=== PATIENT | male | born 1960 | race African-American/Black ===

== ENCOUNTER 2018-03-16 12:11 | Inpatient (IN) | payer OTHER ==
[2018-03-16 13:13] VITALS: BMI 27.2
--- NOTE | 2018-03-16 16:06 | HP ---
CIWA Score - CIWA Score Nausea/Vomitin Muscle Tremors: 2 Anxiety: 3 Agitation: 0-Normal Activity Paroxysmal Sweats: 2 Orientation: 0-Oriented Tacttile Disturbances: 1-Very Mild Itch/Numbness Auditory Disturbances: 0-None Visual Disturbances: 0-None Headache: 2-Mild CIWA-Ar Total Score: 12 Admission [facility] Chief Complaint: PATIENT PRESENTS FOR ETOH WITHDRAWAL SYMPTOMS. Allergies/Adverse Reactions: Allergies Allergy/AdvReac Type Severity Reaction Status Date / Time No Known Allergies Allergy Verified 03/16/18 14:28 History of Present Illness: PATIENT PRESENTS FOR ETOH WITHDRAWAL SYMPTOMS. PATIENT STARTED DRINKING AT AGE 13. DRINKS UP TO 2 PINTS DAILY, AND 6 BEERS. ALSO SMOKES CRACK COCAINE AND STARTED SMOKING AT AGE 22. PATIENT SMOKES UP TO 150 DOLLARS DAILY. LAST DRINK AND COCAINE USE TODAY IN THE MORNING. DENIES SEIZURES FROM ETOH USE. HAS HISTORY OF DEPRESSION, ASTHMA, HEP C (TREATED). DENIES SI/HI AND SUICIDE ATTEMPTS. Exam Limitations: No Limitations - Ebola screening Have you traveled outside of the country in the last 21 days: No (N) Have you had contact with anyone from an Ebola affected area: No Have you been sick,other than usual withdrawal symptoms: No Do you have a fever: No - Review of Systems Constitutional: Night Sweats, Changes in sleep EENT: reports: No Symptoms Reported Respiratory: reports: No Symptoms reported Cardiac: reports: No Symptoms Reported GI: reports: Diarrhea, Nausea, Poor Fluid Intake, Abdominal cramping : reports: No Symptoms Reported Musculoskeletal: reports: Back Pain, Joint Pain, Muscle Pain Integumentary: reports: Sweating Neuro: reports: Headache, Tremors Endocrine: reports: No Symptoms Reported Hematology: reports: No Symptoms Reported Psychiatric: reports: Orientated x3, Anxious, Depressed Patient History - Patient Medical History Hx Anemia: No Hx Asthma: Yes Hx Chronic Obstructive Pulmonary Disease (COPD): No Hx Cancer: No Hx Cardiac Disorders: No Hx Congestive Heart Failure: No Hx Hypertension: No Hx Hypercholesterolemia: No Hx Pacemaker: No HX Cerebrovascular Accident: No Hx Seizures: No Hx Dementia: No Hx Diabetes: No Hx Gastrointestinal Disorders: Yes (GERD) Hx Liver Disease: Yes (TREATED HEP C) Hx Genitourinary Disorders: No Hx Sexually Transmitted Disorders: No Hx Renal Disease (ESRD): No Hx Thyroid Disease: No Hx Human Immunodeficiency Virus (HIV): No (LAST TEST ONE YEAR AGO AND NEGATIVE) Hx Hepatitis C: Yes (TREATED WITH HARVONI) Hx Depression: Yes Hx Suicide Attempt: No Hx Bipolar Disorder: No Hx Schizophrenia: No - Patient Surgical History Past Surgical History: Yes Hx Neurologic Surgery: No Hx Cataract Extraction: No Hx Cardiac Surgery: No Hx Lung Surgery: No Hx Breast Surgery: No Hx Breast Biopsy: No Hx Abdominal Surgery: No Hx Appendectomy: No Hx Cholecystectomy: No Hx Genitourinary Surgery: No Hx Orthopedic Surgery: No Other Surgical History: Bilateral inguinal hernia repairs in 2005 Anesthesia Reaction: No - PPD History Previous Implant?: Yes Documented Results: Negative w/o proof Implanted On Prior [facility] Admission?: No PPD to be Administered?: Yes - Smoking Cessation Smoking history: Current every day smoker Have you smoked in the past 12 months: Yes Aproximately how many cigarettes per day: 10 Hx Chewing Tobacco Use: No Initiated information on smoking cessation: Yes 'Breaking Loose' booklet given: 03/16/18 - Substance & Tx. History Hx Alcohol Use: Yes Hx Substance Use: Yes Substance Use Type: Alcohol, Cocaine Hx Substance Use Treatment: Yes (LAST DETOX ONE YEAR AGO [facility]) - Substances Abused Alcohol Route: Oral Frequency: Daily Amount used: 2 6pks beer/ 1-2 pint vodka Age of first use: 12 Date of Last Use: 03/16/18 Cocaine Route: Inhalation Frequency: Daily Amount used: $150 Age of first use: 19 Date of Last Use: 03/16/18 Family Disease History - Family Disease History Family Disease History: Diabetes: Mother, Heart Disease: Mother Admission Physical Exam [facility] - Vital Signs Vital Signs: Vital Signs - 24 hr 03/16/18 13:08 Temperature 98.1 F Pulse Rate 103 H Respiratory 18 Rate Blood Pressure 130/77 - Physical General Appearance: Yes: No Apparent Distress, Nourished, Appropriately Dressed , Tremorous, Sweating, Anxious HEENTM: Yes: EOMI, Hearing grossly Normal, Normal ENT Inspection, Normocephalic , Normal Voice, [place], Pharynx Normal Respiratory: Yes: Chest Non-Tender, Lungs Clear, Normal Breath Sounds, No Respiratory Distress, No Accessory Muscle Use Neck: Yes: No masses,lesions,Nodules, Supple, Trachea in good position Breast: Yes: Breast Exam Deferred Cardiology: Yes: Regular Rhythm, Regular Rate, S1, S2 Abdominal: Yes: Normal Bowel Sounds, Non Tender, Flat, Soft Genitourinary: Yes: Within Normal Limits Back: Yes: Normal Inspection, Muscle Spasm Musculoskeletal: Yes: Gait Steady, Back pain, Muscle Pain Extremities: Yes: Normal Capillary Refill, Normal Inspection, Normal Range of Motion, Non-Tender, Tremors Neurological: Yes: principal biostatistician II-XII NML intact, Fully Oriented, Alert, Motor Strength 5/5, Depressed Affect Integumentary: Yes: Within Normal Limits, Warm, Moist Lymphatic: Yes: Within Normal Limits - Diagnostic (1) Alcohol dependence with uncomplicated withdrawal Current Visit: Yes Status: Acute (2) Nicotine dependence Current Visit: Yes Status: Acute Qualifiers: Substance use status: uncomplicated (3) Cocaine dependence Current Visit: Yes Status: Acute Qualifiers: Substance use status: uncomplicated Qualified Code(s): F14.20 - Cocaine dependence, uncomplicated (4) Asthma Current Visit: Yes Status: Acute Qualifiers: Asthma complication type: unspecified (5) Depressed affect Current Visit: Yes Status: Acute Cleared for Admission [facility] - Detox or Rehab [facility] Level of Care: Medically Managed Detox Regimen/Protocol: Librium [facility] Breath Alcohol Content Breath Alcohol Content: 0.028 Urine Drug Screen - Results Drug Screen Negative: No Urine Drug Screen Results: SURI-Cocaine
[2018-03-16] MEDS ORDERED: MENTHOL/PHENOL 1 EACH UD MM PRN (16:11)
[2018-03-16] MEDS ORDERED: ACETAMINOPHEN 325 MG TABLET (FP) PO PRN (16:11)
[2018-03-16] MEDS ORDERED: P-EPHED 60MG/TRIPROLIDI 2.5MG TABLET PO PRN (16:11)
[2018-03-16] MEDS ORDERED: guaiFENesin/D-METHORPHAN HB 10 ML UNIT-DOSE CUPS PO PRN (16:11)
[2018-03-16] MEDS ORDERED: IBUPROFEN 400 MG TABLET (FP) PO PRN (16:11)
[2018-03-16] MEDS ORDERED: MAG HYDROX/AL HYDROX/SIMETH 30 ML UNIT-DOSE CUP PO PRN (16:11)
[2018-03-16] MEDS ORDERED: LOPERAMIDE HCL 2 MG CAPSULE PO PRN (16:11)
[2018-03-16] MEDS ORDERED: MAGNESIUM HYDROX 2400MG/30ML ORAL SUSPENSION 30 ML CUP PO PRN (16:11)
[2018-03-16] MEDS ORDERED: hydrOXYzine PAMOATE 50 MG CAPSULE (FP) PO PRN (16:11)
[2018-03-16] MEDS ORDERED: MAGNESIUM CITRATE 300 ML BOTTLE PO PRN (16:11)
[2018-03-16] MEDS ORDERED: chlordiazePOXIDE HCL 25 MG CAPSULE PO PRN (16:16)
[2018-03-16] MEDS ORDERED: chlordiazePOXIDE HCL 25 MG CAPSULE PO ONE (17:00)
[2018-03-16] MEDS ORDERED: MELATONIN 5 MG TABLETS PO PRN (22:00)
[2018-03-16] MEDS: chlordiazePOXIDE HCL 25 MG CAPSULE PO SCH (22:42)
[2018-03-16] MEDS: THIAMINE HCL 100 MG TABLET (FP) PO SCH (22:42)
[2018-03-16] MEDS: MONTELUKAST NA 10 MG TABLET PO SCH (22:42)
[2018-03-16] MEDS: ALBUTEROL SO4 18 GM HFA INHALER IH PRN (22:44)
[2018-03-17] MEDS: chlordiazePOXIDE HCL 25 MG CAPSULE PO SCH ×4 (05:56→22:39)
[2018-03-17 10:48] LABS: HEMATOCRIT 45.9 % (35.4-49); HEMOGLOBIN 15.3 GM/dL (11.7-16.9); MCH 33.2 pg (25.7-33.7); MCHC 33.3 g/dl (32.0-35.9); MEAN CELL VOLUME 99.7 fl (80-96); MEAN PLT VOLUME 8.1 fl (7.5-11.1); PLATELET COUNT 153 K/MM3 (134-434); WHITE BLOOD COUNT 7.2 K/mm3 (4.0-10.0)
[2018-03-17 11:05] LABS: CHLORIDE 106 mmol/L (98-107); POTASSIUM 4.3 mmol/L (3.5-5.1); SODIUM 142 mmol/L (136-145)
[2018-03-17 11:24] LABS: ALBUMIN 3.5 g/dl (3.4-5.0); ALK PHOS 77 U/L (45-117); ANION GAP 7 (8-16); BILIRUBIN,TOTAL 0.5 mg/dL (0.2-1.0); BLOOD UREA NITROGEN 12 mg/dL (7-18); CALCIUM 8.7 mg/dL (8.5-10.1); CO2 29 mmol/L (21-32); GLUCOSE,RANDOM 89 mg/dL (74-106); SGOT/AST 18 U/L (15-37); SGPT/ALT 39 U/L (12-78); TOT PROT 6.2 g/dl (6.4-8.2)
[2018-03-17] MEDS: PANTOPRAZOLE 40 MG TABLET (FP) PO SCH (12:03)
[2018-03-17] MEDS: PRENATAL VITAMINS W/ FOLIC ACID TABLET (FP) PO SCH (12:03)
[2018-03-17] MEDS: ALBUTEROL SO4 18 GM HFA INHALER IH PRN (12:06)
[2018-03-17] MEDS: NICOTINE POLACRILEX 4 MG GUM BC PRN ×3 (13:05→22:42)
--- NOTE | 2018-03-17 14:03 | PN ---
[facility] CIWA - CIWA Score Nausea/Vomitin-No Nausea/No Vomiting Muscle Tremors: 3 Anxiety: 4-Mod. Anxious/Guarded Agitation: 2 Paroxysmal Sweats: 3 Orientation: 0-Oriented Tacttile Disturbances: 2-Mild Itch/Numbness/Burn Auditory Disturbances: 0-None Visual Disturbances: 3-Moderate Sensitivity Headache: 0-None Present CIWA-Ar Total Score: 17 BHS Progress Note (SOAP) Subjective: Tremors, Sweating, Body Aches, Interrupted Sleep, Diarrhea. Objective: PATIENT A & O X 3, OBSERVED AMBULATING ON UNIT. NO ACUTE DISTRESS. 03/17/18 14:01 Vital Signs Temperature 96.1 F L 03/17/18 09:43 Pulse Rate 87 03/17/18 09:43 Respiratory Rate 20 03/17/18 09:43 Blood Pressure 130/70 03/17/18 09:43 O2 Sat by Pulse Oximetry (%) Laboratory Tests 03/17/18 03/17/18 03/17/18 07:55 07:55 07:55 WBC 7.2 RBC 4.60 Hgb 15.3 Hct 45.9 MCV 99.7 H MCH 33.2 MCHC 33.3 RDW 14.0 Plt Count 153 MPV 8.1 Sodium 142 Potassium 4.3 Chloride 106 Carbon Dioxide 29 Anion Gap 7 L BUN 12 Creatinine 1.0 Creat Clearance w eGFR > 60 Random Glucose 89 Calcium 8.7 Total Bilirubin 0.5 AST 18 ALT 39 Alkaline Phosphatase 77 Total Protein 6.2 L Albumin 3.5 RPR Titer Nonreactive LABS NOTED. UA RESULTS PENDING. 03/17/18 14:37 Assessment: 03/17/18 14:03 WITHDRAWAL SYMPTOMS. Plan: CONTINUE DETOX. PATIENT REPORTS HISTORY OF BEING PRESCRIBED OXYBUTYNIN FOR BLADDER DISORDER BY OUTSIDE MEDICAL PROVIDER. HOWEVER, ACCORDING TO PHARMACIST AT PATIENT'S PHARMACY ([facility], [place], [place] NO RECORD FOR PRIOR PRESCRIPTION OF OXYBUTYNIN EXISTS.
--- NOTE | 2018-03-17 14:50 | EKG ---
Test Reason : Blood Pressure : / mmHG Vent. Rate : 100 BPM Atrial Rate : 100 BPM P-R Int : 110 ms QRS Dur : 076 ms QT Int : 330 ms P-R-T Axes : 079 076 052 degrees QTc Int : 425 ms SINUS RHYTHM WITH SHORT AZ POSSIBLE LEFT ATRIAL ENLARGEMENT BORDERLINE ECG NO PREVIOUS ECGS AVAILABLE Confirmed by MD Bernardino, Armand ([id number]) on 03/17/2018 2:50:00 PM Referred By: Confirmed By:Armand Lebron MD
--- NOTE | 2018-03-17 15:10 | CONSULT ---
[facility] Psychiatric Consult - Data Date of interview: 03/17/18 Admission source: [facility] Identifying data: First admission to [facility] for this 57 y/o AA male seeking detox treatment on for alcohol and cocaine (crack) dependence.Patient is ,a father of two,domiciled,unemployed and supported on welfare. Substance Abuse History: Confirmed by the patient in this interview.Smoking history: Current every day smoker. Have you smoked in the past 12 months: Yes. Aproximately how many cigarettes per day: 10. Hx Chewing Tobacco Use: No. Initiated information on smoking cessation: Yes. 'Breaking Loose' booklet given : 03/16/18. - Substance & Tx. History. Hx Alcohol Use: Yes. Hx Substance Use : Yes. Substance Use Type: Alcohol, Cocaine. Hx Substance Use Treatment: Yes ( LAST DETOX ONE YEAR AGO [facility]). - Substances Abused. Alcohol. Route: Oral. Frequency: Daily. Amount used: 2 6pks beer/ 1-2 pint vodka. Age of first use: 12. Date of Last Use: 03/16/18. Cocaine. Route: Inhalation. Frequency: Daily. Amount used: $150. Age of first use: 19. Date of Last Use: 03/16/18 Medical History: GERD,bronchial asthma,hepatitis C (treated),benign prostatic hyperplasia (BPH) and a distant history of bilateral inguinal herniorraphy (2005 ). Psychiatric History: Diagnosed in the past with MDD.Used to be followed at the [facility] mental health clinic.Patient has voluntarily abstained from taking psychotropic medications for several months.Past treatment with bupropion.NO OPD care.Mr Walls denies history of suicide attempts. Physical/Sexual Abuse/Trauma History: No history reported. Additional Comment: Urine Drug Screen Results: SURI-Cocaine.Noted on admission. Mental Status Exam - Mental Status Exam Alert and Oriented to: Time, Place, Person Cognitive Function: Good Patient Appearance: Well Groomed Mood: Hopeful, Euthymic Affect: Appropriate, Normal Range Patient Behavior: Fatigued, Cooperative Speech Pattern: Clear Voice Loudness: Normal Thought Process: Intact, Goal Oriented Thought Disorder: Not Present Hallucinations: Denies Suicidal Ideation: Denies Homicidal Ideation: Denies Insight/Judgement: Fair Sleep: Poorly, Difficulty falling asleep Appetite: Good Muscle strength/Tone: Normal Gait/Station: Normal Psychiatric Findings - Problem List ([place] 1, 2,3) (1) Alcohol dependence with uncomplicated withdrawal Current Visit: Yes Status: Acute (2) Cocaine dependence Current Visit: Yes Status: Acute Qualifiers: Substance use status: uncomplicated Qualified Code(s): F14.20 - Cocaine dependence, uncomplicated (3) Nicotine dependence Current Visit: Yes Status: Acute Qualifiers: Nicotine product type: cigarettes Substance use status: uncomplicated Qualified Code(s): F17.210 - Nicotine dependence, cigarettes, uncomplicated (4) Insomnia Current Visit: Yes Status: Acute - Initial Treatment Plan Initial Treatment Plan: Psychoeducation.Sleep hygiene.Detoxification in progress.Ambien 5 mg po hs prn.Patient is made aware of the risk of parasomnias.Observation.
[2018-03-17] MEDS: TIOTROPIUM BROMIDE 18 MCG CAPSULES IH SCH (17:55)
[2018-03-17] MEDS: FLUTICASONE PROP 0.05% 16 GM NASAL SPRAY NS SCH (22:38)
[2018-03-17] MEDS: BUDESONIDE/FORMETEROL FUMARATE 160/4.5 mcg INHALER IH SCH (22:39)
[2018-03-17] MEDS: THIAMINE HCL 100 MG TABLET (FP) PO SCH (22:39)
[2018-03-17] MEDS: MONTELUKAST NA 10 MG TABLET PO SCH (22:39)
[2018-03-17] MEDS: ZOLPIDEM TARTRATE 5 MG TABLET PO PRN (22:42)
[2018-03-18] MEDS: chlordiazePOXIDE HCL 25 MG CAPSULE PO SCH ×3 (05:46→17:15)
[2018-03-18] MEDS: ALBUTEROL SO4 18 GM HFA INHALER IH PRN ×3 (05:47→21:02)
[2018-03-18] MEDS: TIOTROPIUM BROMIDE 18 MCG CAPSULES IH SCH (10:25)
[2018-03-18] MEDS: PANTOPRAZOLE 40 MG TABLET (FP) PO SCH (10:25)
[2018-03-18] MEDS: TAMSULOSIN HCL 0.4 MG CAP.ER.24H (FP) PO SCH (10:25)
[2018-03-18] MEDS: FLUTICASONE PROP 0.05% 16 GM NASAL SPRAY NS SCH ×2 (10:26→22:43)
[2018-03-18] MEDS: PRENATAL VITAMINS W/ FOLIC ACID TABLET (FP) PO SCH (10:26)
[2018-03-18] MEDS: BUDESONIDE/FORMETEROL FUMARATE 160/4.5 mcg INHALER IH SCH ×2 (10:28→22:48)
--- NOTE | 2018-03-18 15:22 | PN ---
S CIWA - CIWA Score Nausea/Vomitin (DIARRHEA) Muscle Tremors: 4-Moderate,w/Arms Extend Anxiety: 4-Mod. Anxious/Guarded Agitation: 3 Paroxysmal Sweats: 1-Minimal Palms Moist Orientation: 0-Oriented Tacttile Disturbances: 0-None Auditory Disturbances: 0-None Visual Disturbances: 0-None Headache: 0-None Present CIWA-Ar Total Score: 15 BHS Progress Note (SOAP) Subjective: ANXIETY,SWEATS,DIARRHEA,BACK ACHE. Objective: 03/18/18 15:22 Vital Signs 03/18/18 03/18/18 10:40 13:46 Temperature 96.1 F L 97.6 F Pulse Rate 81 90 Respiratory 20 20 Rate Blood Pressure 121/79 132/82 Laboratory Tests 03/17/18 03/17/18 03/17/18 07:55 07:55 07:55 WBC 7.2 RBC 4.60 Hgb 15.3 Hct 45.9 MCV 99.7 H MCH 33.2 MCHC 33.3 RDW 14.0 Plt Count 153 MPV 8.1 Sodium 142 Potassium 4.3 Chloride 106 Carbon Dioxide 29 Anion Gap 7 L BUN 12 Creatinine 1.0 Creat Clearance w eGFR > 60 Random Glucose 89 Calcium 8.7 Total Bilirubin 0.5 AST 18 ALT 39 Alkaline Phosphatase 77 Total Protein 6.2 L Albumin 3.5 RPR Titer Nonreactive OTHER LABS PENDING Assessment: 03/18/18 15:22 WITHDRAWAL SX Plan: CONTINUE DETOX IMODIUM PRN MOTRIN PRN
[2018-03-18] MEDS: NICOTINE POLACRILEX 4 MG GUM BC PRN (17:17)
[2018-03-18] MEDS ORDERED: ALBUTEROL SO4 0.083% IH SOL 2.5 MG/3 ML VIAL.NEB. NEB ONE (20:52)
--- NOTE | 2018-03-18 21:05 | PN ---
[facility] Progress Note Note: Patient complained of shortness of breath and wheezing. Saturation 91% at room air Vital Signs Temperature 97.4 F L 03/18/18 17:36 Pulse Rate 84 03/18/18 17:36 Respiratory Rate 18 03/18/18 17:36 Blood Pressure 134/75 03/18/18 17:36 O2 Sat by Pulse Oximetry (%) Action: Albulerol nebulizer treatment ordered
[2018-03-18] MEDS: THIAMINE HCL 100 MG TABLET (FP) PO SCH (22:43)
[2018-03-18] MEDS: MONTELUKAST NA 10 MG TABLET PO SCH (22:43)
[2018-03-18] MEDS: chlordiazePOXIDE 5 MG CAPSULE PO SCH (22:44)
[2018-03-18] MEDS: ZOLPIDEM TARTRATE 5 MG TABLET PO PRN (22:48)
[2018-03-19] MEDS: chlordiazePOXIDE 5 MG CAPSULE PO SCH ×3 (05:49→18:03)
[2018-03-19] MEDS: ALBUTEROL SO4 18 GM HFA INHALER IH PRN ×3 (05:49→22:35)
[2018-03-19] MEDS: PANTOPRAZOLE 40 MG TABLET (FP) PO SCH (10:28)
[2018-03-19] MEDS: BUDESONIDE/FORMETEROL FUMARATE 160/4.5 mcg INHALER IH SCH ×2 (10:28→22:32)
[2018-03-19] MEDS: PRENATAL VITAMINS W/ FOLIC ACID TABLET (FP) PO SCH (10:28)
[2018-03-19] MEDS: TAMSULOSIN HCL 0.4 MG CAP.ER.24H (FP) PO SCH (10:28)
[2018-03-19] MEDS: FLUTICASONE PROP 0.05% 16 GM NASAL SPRAY NS SCH ×2 (10:28→22:30)
[2018-03-19] MEDS: TIOTROPIUM BROMIDE 18 MCG CAPSULES IH SCH (10:28)
[2018-03-19] MEDS ORDERED: ALBUTEROL SO4 0.083% IH SOL 2.5 MG/3 ML VIAL.NEB. NEB PRN (12:35)
--- NOTE | 2018-03-19 12:39 | PN ---
[facility] Progress Note (SOAP) Subjective: Cough Sweats Shakes Objective: 03/19/18 12:37 A & O x 3 Some rhonchi auscultaed No use of accessory muscles Vital Signs Temperature 97.8 F 03/19/18 09:41 Pulse Rate 97 H 03/19/18 09:41 Respiratory Rate 18 03/19/18 09:41 Blood Pressure 136/81 03/19/18 09:41 O2 Sat by Pulse Oximetry (%) Assessment: 03/19/18 12:38 Withdrawal sx Cough - non productive Plan: continue detox Albuerol prn
[2018-03-19 15:08] LABS: URINE APPEARANCE CLEAR; URINE BILIRUBIN NEGATIVE (<2.0 mg/dL); URINE BLOOD NEGATIVE (NEGATIVE); URINE COLOR STRAW; URINE GLUCOSE (UA) NEGATIVE (NEGATIVE); URINE KETONE NEGATIVE (NEGATIVE); URINE LEUK ESTERASE NEGATIVE (NEGATIVE); URINE NITRITE NEGATIVE (NEGATIVE); URINE PROTEIN NEGATIVE (NEGATIVE); URINE UROBILINOGEN NEGATIVE mg/dL (0.2-1.0)
[2018-03-19] MEDS: ZOLPIDEM TARTRATE 5 MG TABLET PO PRN (22:32)
[2018-03-19] MEDS: MONTELUKAST NA 10 MG TABLET PO SCH (22:32)
[2018-03-19] MEDS: chlordiazePOXIDE HCL 10 MG CAPSULE PO SCH (22:32)
[2018-03-19] MEDS: THIAMINE HCL 100 MG TABLET (FP) PO SCH (22:35)
[2018-03-20] MEDS: chlordiazePOXIDE HCL 10 MG CAPSULE PO SCH ×2 (06:12→10:59)
[2018-03-20] MEDS: ALBUTEROL SO4 18 GM HFA INHALER IH PRN (06:13)
[2018-03-20 09:24] VITALS: BP 132/84; PULSE 91; TEMP 98.3
[2018-03-20] MEDS: TAMSULOSIN HCL 0.4 MG CAP.ER.24H (FP) PO SCH (09:43)
[2018-03-20] MEDS: FLUTICASONE PROP 0.05% 16 GM NASAL SPRAY NS SCH (09:43)
[2018-03-20] MEDS: TIOTROPIUM BROMIDE 18 MCG CAPSULES IH SCH (09:43)
[2018-03-20] MEDS: PRENATAL VITAMINS W/ FOLIC ACID TABLET (FP) PO SCH (09:43)
[2018-03-20] MEDS: PANTOPRAZOLE 40 MG TABLET (FP) PO SCH (09:45)
[2018-03-20] MEDS: BUDESONIDE/FORMETEROL FUMARATE 160/4.5 mcg INHALER IH SCH (10:58)
--- NOTE | 2018-03-20 12:22 | PN ---
[facility] Progress Note (SOAP) Subjective: Patient denies current Detox symptoms and reports that he feels well overall. Objective: PATIENT A & O X 3, OBSERVED AMBULATING ON UNIT. NO ACUTE DISTRESS. 03/20/18 12:25 Vital Signs Temperature 98.3 F 03/20/18 09:23 Pulse Rate 91 H 03/20/18 09:23 Respiratory Rate 18 03/20/18 09:23 Blood Pressure 132/84 03/20/18 09:23 O2 Sat by Pulse Oximetry (%) Laboratory Tests 03/17/18 03/17/18 03/17/18 07:55 07:55 07:55 WBC 7.2 RBC 4.60 Hgb 15.3 Hct 45.9 MCV 99.7 H MCH 33.2 MCHC 33.3 RDW 14.0 Plt Count 153 MPV 8.1 Sodium 142 Potassium 4.3 Chloride 106 Carbon Dioxide 29 Anion Gap 7 L BUN 12 Creatinine 1.0 Creat Clearance w eGFR > 60 Random Glucose 89 Calcium 8.7 Total Bilirubin 0.5 AST 18 ALT 39 Alkaline Phosphatase 77 Total Protein 6.2 L Albumin 3.5 Urine Color Urine Appearance Urine pH Ur Specific [place] Urine Protein Urine Glucose (UA) Urine Ketones Urine Blood Urine Nitrite Urine Bilirubin Urine Urobilinogen Ur Leukocyte Esterase RPR Titer Nonreactive 03/19/18 09:50 WBC RBC Hgb Hct MCV MCH MCHC RDW Plt Count MPV Sodium Potassium Chloride Carbon Dioxide Anion Gap BUN Creatinine Creat Clearance w eGFR Random Glucose Calcium Total Bilirubin AST ALT Alkaline Phosphatase Total Protein Albumin Urine Color Straw Urine Appearance Clear Urine pH 6.0 Ur Specific [place] 1.008 Urine Protein Negative Urine Glucose (UA) Negative Urine Ketones Negative Urine Blood Negative Urine Nitrite Negative Urine Bilirubin Negative Urine Urobilinogen Negative Ur Leukocyte Esterase Negative RPR Titer LABS NOTED. Assessment: 03/20/18 12:27 COMPLETION OF DETOX REGIMEN. Plan: PATIENT SCHEDULED FOR DISCHARGE FROM DETOX UNIT TODAY.
--- NOTE | 2018-03-20 12:36 | DS ---
[facility] Detox Discharge Summary Admission Date: 03/16/18 Discharge Date: 03/20/18 - History Present History: Alcohol Dependence, Cocaine Dependence Additional Comments: NO BEDS ARE CURRENTLY AVAILABLE AT [facility] ( [place], [place] PATIENT GOING HOME FOR TODAY AND WILL CONTACT [facility] TOMORROW AM TO INQUIRE ABOUT REHAB BED AVAILABILITY AT THAT TIME. PRESCRIPTIONS FOR DISCHARGE MEDICATIONS SENT TO PATIENT'S PHARMACY ( [facility], [place] MEDICATION PATIENT WAS DISCHARGED FROM DETOX UNIT IN STABLE MEDICAL CONDITION. Pertinent Past History: GERD, Asthma, Hep C (Treated), Depression, Nicotine Dependence, Insomnia. - Physical Exam Results Vital Signs: Vital Signs Temperature 98.3 F 03/20/18 09:23 Pulse Rate 91 H 03/20/18 09:23 Respiratory Rate 18 03/20/18 09:23 Blood Pressure 132/84 03/20/18 09:23 O2 Sat by Pulse Oximetry (%) Pertinent Admission Physical Exam Findings: WITHDRAWAL SYMPTOMS. Laboratory Tests 03/17/18 03/17/18 03/17/18 07:55 07:55 07:55 WBC 7.2 RBC 4.60 Hgb 15.3 Hct 45.9 MCV 99.7 H MCH 33.2 MCHC 33.3 RDW 14.0 Plt Count 153 MPV 8.1 Sodium 142 Potassium 4.3 Chloride 106 Carbon Dioxide 29 Anion Gap 7 L BUN 12 Creatinine 1.0 Creat Clearance w eGFR > 60 Random Glucose 89 Calcium 8.7 Total Bilirubin 0.5 AST 18 ALT 39 Alkaline Phosphatase 77 Total Protein 6.2 L Albumin 3.5 Urine Color Urine Appearance Urine pH Ur Specific [place] Urine Protein Urine Glucose (UA) Urine Ketones Urine Blood Urine Nitrite Urine Bilirubin Urine Urobilinogen Ur Leukocyte Esterase RPR Titer Nonreactive 03/19/18 09:50 WBC RBC Hgb Hct MCV MCH MCHC RDW Plt Count MPV Sodium Potassium Chloride Carbon Dioxide Anion Gap BUN Creatinine Creat Clearance w eGFR Random Glucose Calcium Total Bilirubin AST ALT Alkaline Phosphatase Total Protein Albumin Urine Color Straw Urine Appearance Clear Urine pH 6.0 Ur Specific [place] 1.008 Urine Protein Negative Urine Glucose (UA) Negative Urine Ketones Negative Urine Blood Negative Urine Nitrite Negative Urine Bilirubin Negative Urine Urobilinogen Negative Ur Leukocyte Esterase Negative RPR Titer LABS NOTED. - Treatment Hospital Course: Detox Protocol Followed, Detoxed Safely, Responded well, Discharged Condition Good, Rehab Referral Accepted Patient has Accepted a Rehab Referral to: [facility] ( [place]). - Medication Discharge Medications: Ambulatory Orders Fluticasone Prop 0.05% Nasal [Flonase -] 1 - 2 spray NS BID 03/16/18 Omeprazole 40 mg PO DAILY 03/16/18 Albuterol Sulfate Inhaler - [Ventolin Hfa Inhaler -] 2 inh PO Q4H PRN #1 inhaler 03/20/18 Budesonide/Formeterol Fumarate [SYMBICORT 160/4.5mcg -] 2 inh PO BID #1 inhaler 03/20/18 Montelukast Na [Singulair -] 10 mg PO HS #30 tablet 03/20/18 Tamsulosin HCl [Flomax] 0.4 mg PO DAILY #30 cap.er.24h 03/20/18 Tiotropium [place] [Spiriva Respimat] 2 puff IH DAILY #1 mist.inhal 03/20/18 - Diagnosis (1) Alcohol dependence with uncomplicated withdrawal Status: Acute (2) Asthma Status: Chronic Qualifiers: Asthma severity: moderate Asthma persistence: persistent Asthma complication type: uncomplicated Qualified Code(s): J45.40 - Moderate persistent asthma, uncomplicated (3) Cocaine dependence Status: Chronic Qualifiers: Substance use status: uncomplicated Qualified Code(s): F14.20 - Cocaine dependence, uncomplicated (4) Depressed affect Status: Chronic (5) Nicotine dependence Status: Chronic Qualifiers: Nicotine product type: cigarettes Substance use status: in withdrawal Qualified Code(s): F17.213 - Nicotine dependence, cigarettes, with withdrawal (6) Insomnia Status: Chronic Qualifiers: Insomnia type: unspecified Qualified Code(s): G47.00 - Insomnia, unspecified - AMA Did Patient Leave Against Medical Advice: No
== END 2018-03-20 11:31 | disposition home or self-care (01) | DRG 774 ==
LOC: YASAS 12:11 → Y3N 16:29
PROVIDERS: ADMIT Surgery; ATTEND Surgery
PROC: HZ2ZZZZ Detoxification Services for Substance Abuse Treatment (ICD-10-PCS; principal; 2018-03-16)
DX: F10.230 Alcohol dependence with withdrawal, uncomplicated (principal); F14.20 Cocaine dependence, uncomplicated; F17.213 Nicotine dependence, cigarettes, with withdrawal; F32.9 Major depressive disorder, single episode, unspecified; J45.40 Moderate persistent asthma, uncomplicated; G47.00 Insomnia, unspecified; R05 Cough; K21.9 Gastro-esophageal reflux disease without esophagitis; B18.2 Chronic viral hepatitis C; N40.0 Benign prostatic hyperplasia without lower urinary tract symptoms
CPT/HCPCS: 36415; 80053; 81003; 85027; 86593; 93005; 93010; 94640